=== PATIENT | female | born 1965 | race Two or more races ===

== ENCOUNTER 2020-09-16 08:45 | Inpatient (IN) | payer OTHER ==
[~2020-09-16] VITALS: Ht 160 cm; Wt 132.4 kg
[2020-09-16] MEDS ORDERED: COZAAR100 MG PO (10:31)
[2020-09-16] MEDS ORDERED: LASIX20 MG PO (10:31)
[2020-09-16] MEDS ORDERED: TOPROL XL25 M1 PO (10:32)
[2020-09-16] MEDS ORDERED: CRESTOR20 MG PO (10:32)
[2020-09-16] MEDS ORDERED: LEVO-T88 MCG PO (10:32)
[2020-09-16] MEDS ORDERED: SERTRALINE HCL50 MG PO (10:33)
[2020-09-16] MEDS ORDERED: CLONAZEPAM1 M1 PO (10:33)
[2020-09-22] MEDS ORDERED: BUPROPION XL150 MG (09:58)
[2020-09-24] MEDS ORDERED: ELIQUIS2.5 MG PO (17:16)
[2020-09-24] MEDS ORDERED: DUI500 PO (17:16)
[2020-09-24] MEDS ORDERED: PERCOCET 5-3251 EACH PO (17:16)
== END 2020-09-24 19:01 | disposition home or self-care (01) | DRG 470 ==
LOC: ADM 08:45 → EDSTATUS 08:45 → SURG 09-22 06:23 → O/R 09-22 06:23 → SURH 09-22 08:45 → SURG 09-22 13:16
PROVIDERS: ADMIT Orthopaedic Surgery; ATTEND Orthopaedic Surgery
PROC: 0SRD0J9 Replacement of Left Knee Joint with Synthetic Substitute, Cemented, Open Approach (ICD-10-PCS; principal; 2020-09-22 12:30)
DX: M17.12 Unilateral primary osteoarthritis, left knee (principal); Z68.43 Body mass index [BMI] 50.0-59.9, adult; Z20.822 Contact with and (suspected) exposure to COVID-19; E66.01 Morbid (severe) obesity due to excess calories; I10 Essential (primary) hypertension